=== PATIENT | female | born 1980 | race Hispanic/Latino ===

== ENCOUNTER → 2018-05-16 | Day surgery (SDC) | payer BC ==
[~2018-05-16] MED LIST: BUPIVACAINE HCL 0.5% INJ 30 ML VIAL INJ ONE; CEFAZOLIN SOD 2 GM/D5W 50ML 50 ML IV ONE; DEXAMETHASONE SOD PHOS INJ 4 MG/ML VIAL ONE; FENTANYL CITRATE/PF 100MCG/2 ML INJ ONE; LIDOCAINE HCL 2% LOCAL INJ 5 ML SDV VIAL INJ ONE; MIDAZOLAM HCL 2 MG/2 ML VIAL ONE; NEOSTIGMINE 1 MG/ML 10ML VIAL ONE; ONDANSETRON HCL INJ 2 MG/ML VIAL ONE; PROPOFOL IV EMULSION 10 MG/ML 20 ML VIAL ONE; SEVOFLURANE INHAL SOLN 250 ML PEN BTL ONE
[2018-05-16 12:30] VITALS: BP 116/81
--- NOTE | 2018-05-16 14:03 | Operative Report ---
DATE OF PROCEDURE: May 16, 2018 PREOPERATIVE DIAGNOSES 1. Posterior tibial tendon dysfunction, stage II, with tendon tear. 2. Accessory navicular, right foot. 3. Calcaneal valgus. POSTOPERATIVE DIAGNOSES 1. Posterior tibial tendon dysfunction, stage II, with tendon tear. 2. Accessory navicular, right foot. 3. Calcaneal valgus. PROCEDURES 1. Repair of posterior tibial tendon with allograft, right foot. 2. Kidner procedure, right foot. 3. Application of posterior splint. PATHOLOGY: None. ANESTHESIA: General anesthetic. HEMOSTASIS: A pneumatic thigh tourniquet. ESTIMATED BLOOD LOSS: Less than 10 mL. MATERIALS: A SonicAnchor, 2 x 5 x 10 mm, lot number [id number], date of expiration 11/21/2018. AlloWrap wet, reference number [id number], lot number [id number], expiration 10/11/2019. COMPLICATIONS: None. CONDITION: Stable. PROCEDURE IN DETAIL: Under mild sedation, the patient was brought to the operating room and placed on the operating table in a supine position. Following IV sedation, anesthesia was obtained with a general anesthetic. At this point, the right foot was scrubbed, prepped and draped in the usual aseptic manner. A pneumatic thigh tourniquet was inflated to 350 mmHg. The leg was lowered to the table. Posterior tibial tendon repair with allograft: Attention was then directed to the posterior tibial tendon where a curvilinear incision was made overlying the tendon as it courses behind the medial malleolus into the insertion into the navicular. The incision was deepened via sharp and blunt dissection, taking care to retract or cauterize the neurovascular structures as necessary. The wound was deepened down to the level of the tendon sheath. At this point, there was noted to be a large amount of mucoid cyst into the tendon sheath. The tendon was flattened. It was yellowish in appearance, and there was mucus was noted into the tendon. Utilizing sharp dissection, all nonviable tissue was removed with a combination of a 15 blade and a curette. The tendon was then repaired and entubulated utilizing 4-0 Prolene after all nonviable tissue was removed. It was reinforced utilizing a 4 x 4 AlloWrap wet. Kidner procedure: Attention was then directed to the insertion of the posterior tibial tendon to the navicular where under the use of intraop fluoroscopy the accessory navicular was isolated utilizing sharp dissection. The accessory navicular was fully isolated. With a combination of a sagittal saw and a hand rasp, all accessory navicular was removed. This was confirmed clinically and with the use of intraop fluoroscopy. The area was then flushed with copious amounts of normal sterile saline solution. At this point, a SonicAnchor was then used in order to transpose the tendon into a more dorsal medial position and decrease the pull of the lever as it courses down into the foot. The area was then flushed with copious amounts of normal sterile saline solution. The area was then closed, closing the deepest layer with 3-0 Vicryl, 4-0 Vicryl, then 4-0 nylon. A clean dressing was applied consisting of ointment, 4 x 4's, Kerlix, and Webril. A posterior splint was applied and was secured utilizing an Murphy bandage. The tourniquet was deflated. There was noted to be a hyperemic response to all the digits. The patient tolerated the procedure and anesthesia well without complications. She was transported to the recovery room with vital signs stable and vascular status intact to both feet. The patient will be discharged home when she meets criteria. She was given instructions to be nonweightbearing, to ice and elevate the foot while at rest, to follow up with me in the office and to call the office if any questions, concerns or any problems arise. Job#: [id number]
== END | disposition home or self-care (01) ==
LOC: OR 07:30
PROVIDERS: ATTEND Podiatrist Foot & Ankle Surgery
DX: S86.111A Strain of other muscle(s) and tendon(s) of posterior muscle group at lower leg level, right leg, initial encounter (principal); Q66.4 Congenital talipes calcaneovalgus; M21.071 Valgus deformity, not elsewhere classified, right ankle; K21.9 Gastro-esophageal reflux disease without esophagitis; X58.XXXA Exposure to other specified factors, initial encounter
CPT/HCPCS: 28238; 36415; 76000; 84702; J0690; J1100; J2001; J2250; J2405; J2704; J2710; Q4150